=== PATIENT | female | born 1995 | race Two or more races ===

== ENCOUNTER 2022-07-27 21:35 | Emergency (ER) | payer BC ==
[~2022-07-27] VITALS: Ht 157.5 cm; Wt 70.8 kg
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
[2022-07-27] MEDS ORDERED: IBUPROFEN 400 MG TABLET ONE (23:16)
[2022-07-27] MEDS ORDERED: IBUPROFEN 400 MG TABLET PO ONE (23:30)
[2022-07-28 02:16] VITALS: BP 116/80
--- NOTE | 2022-07-28 02:16 | NUR ---
Patient discharged to home in stable condition. Written and verbal after care instructions given. Patient verbalizes understanding of instruction.
== END 2022-07-28 02:16 | disposition home or self-care (01) ==
LOC: ER 21:41
DX: S16.1XXA Strain of muscle, fascia and tendon at neck level, initial encounter (principal); S93.601A Unspecified sprain of right foot, initial encounter; S50.12XA Contusion of left forearm, initial encounter; S00.83XA Contusion of other part of head, initial encounter; V89.2XXA Person injured in unspecified motor-vehicle accident, traffic, initial encounter; Y93.89 Activity, other specified; Y92.89 Other specified places as the place of occurrence of the external cause; Y99.8 Other external cause status
CPT/HCPCS: 70450-TC; 70486-TC; 72110-TC; 72125-TC; 73090-TC; 73630-TC